=== PATIENT | female | born 1960 | race Hispanic/Latino ===

== ENCOUNTER 2021-06-19 16:19 | Emergency (ER) | payer MEDICARE ==
--- NOTE | 2021-06-19 16:27 | Event Note ---
ED Screening Note Date of service: 06/19/21 Time: 16:27 ED Screening Note: 60-year-old female brought in by EMS for left wrist injury. EMS reports obvious deformity. Patient is placed in a splint. Was reported that patient had fentanyl in the field. This initial assessment/diagnostic orders/clinical plan/treatment(s) is/are subject to change based on patients health status, clinical progression and re- assessment by fellow clinical providers in the ED. Further treatment and workup at subsequent clinical providers discretion. Patient/guardian urged not to elope from the ED as their condition may be serious if not clinically assessed and managed. Initial orders include: X-ray left wrist 2 view ordered
--- NOTE | 2021-06-19 17:08 | XRay Report ---
Left wrist radiograph, 2 views HISTORY: Injury COMPARISON: None FINDINGS: There is an acute comminuted and impacted fracture of the distal left humerus. Intra-articu lar involvement with 7 mm of intra-articular gap due to displacement of the ulnar aspect of the dista l radius. Acute oblique fracture of the distal left ulnar shaft width apex ulnar angulation and dorsa l displacement distal fracture fragment. Mildly displaced avulsion fracture of the ulnar styloid. The DRUJ is likely disrupted. Carpal alignment is preserved. No additional fracture is identified. There is prominent soft tissue swelling of the wrist with gas along the ulnar aspect of the wrist, suggest ing open fracture. IMPRESSION: Acute distal left radial and ulnar fractures, as above. Signer Name: Kobi Ansari MD Signed: 06/19/2021 5:04 PM Workstation Name: [id number]
[2021-06-19] MEDS ORDERED: oxyCODONE /ACETAMINOPHEN 5-325MG TAB PO ONE ×2 (17:11→20:22)
--- NOTE | 2021-06-19 17:27 | Emergency Department Report ---
Upper Extremity <MENDY MAC - Last Filed: 06/19/21 19:31> - HPI Upper Extremity: Right Wrist Occurred When: Today Mechanism: Fall Severity: severe Symptoms: Yes Pain with Movement, Yes Deformity, Yes Limited Range of Movement, Yes Swelling, No Numbness, No Weakness, No Bruising/Ecchymosis, No Laceration or Abrasion Other History: 60 year old female was brought to ED by EMS with complaints of left wrist injury. 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 She states there was a water bug on her ceiling and she was using a broom to try to get it off. She states that the bug started falling towards her and then she paniced, and struck her left wrist on "something" and then fell onto her wrist. She denies any head injury. She reports severe pain and swelling to left wrist. She is unable to move wrist. She denies any hx of surgery to wrist in plst. She denies any numbness or tingling. She is right hand dominant. Pt was given 200mcg of Fentanyl by EMS but she still reports severe pain. <IRAIDA DELEON - Last Filed: 06/19/21 21:02> - HPI Chief Complaint: Extremity Injury, Upper Stated Complaint: LT WRIST INJURY Time Seen by Provider: 06/19/21 17:10 ED Review of Systems ROS: Stated complaint: LT WRIST INJURY Other details as noted in HPI <MENDY MAC - Last Filed: 06/19/21 19:31> ROS: Stated complaint: LT WRIST INJURY Other details as noted in HPI Comment: All other systems reviewed and negative Constitutional: denies: chills, fever Eyes: denies: eye pain, eye discharge, vision change ENT: denies: ear pain, throat pain, dental pain, hearing loss, epistaxis, congestion Cardiovascular: denies: chest pain, palpitations Genitourinary: denies: urgency, dysuria, frequency, hematuria, discharge, abnormal menses, dyspareunia Musculoskeletal: joint swelling, arthralgia. denies: back pain Skin: denies: rash, lesions, change in color, change in hair/nails, pruritus Neurological: denies: headache, weakness, numbness, paresthesias, confusion, abnormal gait, vertigo Psychiatric: denies: anxiety, depression, auditory hallucinations, visual hallucinations, homicidal thoughts, suicidal thoughts Hematological/Lymphatic: denies: easy bleeding, easy bruising <IRAIDA DELEON - Last Filed: 06/19/21 21:02> ED Past Medical Hx <MENDY MAC - Last Filed: 06/19/21 19:31> - Past Medical History Additional medical history: HYPOTYHROID - Surgical History Past Surgical History?: No <IRAIDA DELEON - Last Filed: 06/19/21 21:02> - Medications Home Medications: Home Medications Medication Instructions Recorded Confirmed Last Taken Type Ibuprofen [Motrin] 600 mg PO Q8H PRN #30 tablet 06/19/21 Unknown Rx Oxycodone HCl/Acetaminophen 1 each PO Q4HR PRN #12 tablet 06/19/21 Unknown Rx [Percocet 10/325 mg] Upper Extremity Exam - Exam General: Vital signs noted. No distress. Alert and acting appropriately. <MENDY MAC - Last Filed: 06/19/21 19:31> - Exam General: Vital signs noted. No distress. Alert and acting appropriately. Head and Torso: No HEENT Abnormality, No Neck Tenderness, No Chest/Lungs Abnormality, No Abdominal Tenderness, No Back Tenderness Shoulder Exam: Yes Normal Range of Motion in Shoulder, No Shoulder Tenderness, No Clavicle Tenderness, No Shoulder Deformity, No AC Joint Tenderness Arm Exam: No Arm/Humerus Tenderness, No Arm Deformity Elbow: Yes Normal Range of Motion in Elbow, No Elbow Tenderness, No Elbow Deformity Wrist: Yes Wrist Tenderness (severe left wrist ttp ), Yes Wrist Deformity (dinner fork deformity noted with moderate swelling and mild ecchymosis ), No Normal ROM in Wrist Hand: Yes Normal ROM in Digit(s), No Hand Tenderness, No Hand Deformity, No Digit Tenderness, No Digit(s) Deformity, No Tendon Dysfunction CMS Exam: Yes Normal Distal Pulses, Yes Normal Capillary Refill, Yes Normal Distal Sensation, No Broken Skin <IRAIDA DELEON - Last Filed: 06/19/21 21:02> ED Course Vital Signs 06/19/21 06/19/21 06/19/21 16:55 18:05 18:16 Temperature 97.6 F Pulse Rate 73 67 Respiratory 20 18 19 Rate Blood Pressure 110/66 O2 Sat by Pulse 96 97 100 Oximetry <MENDY MAC - Last Filed: 06/19/21 19:31> Vital Signs 06/19/21 16:55 Temperature 97.6 F Pulse Rate 73 Respiratory 20 Rate Blood Pressure 110/66 O2 Sat by Pulse 96 Oximetry <IRAIDA DELEON - Last Filed: 06/19/21 21:02> - Moderate Sedation Indications: fracture/dislocation redu ASA Class: II Mallampati Airway Score: 3 Preparation: cardiac technologist applied, pulse oximeter, capnometry used, supplemental O2 applied, suction/airway equipment at bedside, IV secured IV Propofol Dose (mgs): 220 Complications: none Patient Tolerated Procedure: well, no complications - Orthopedic Fracture Reduction Fracture #1 Consent Obtained: written consent Time Out Performed: Yes Side: right Analgesia: moderate sedation Technique: direct manipulation, finger traps Post Reduction X-rays Demonstrate: acceptable reduction Post-Reduction Neuro Exam: intact Post-Reduction Vascular Exam: intact Splint Applied: Yes Patient Tolerated Procedure: well <MENDY MAC - Last Filed: 06/19/21 19:31> ED Medical Decision Making - Radiology Data Radiology results: report reviewed Right wrist 3 views INDICATION: Right wrist pain following injury IMPRESSION: Comminuted intra-articular fracture of the distal radius. There is a obliquely oriented fracture through the distal metaphysis of the adjacent ulna and a displaced ulnar solid process fracture. Overlying cast has been placed. - Medical Decision Making I performed moderate sedation and achieved adequate alignment post reduction. Patient medicated with Dilaudid post reduction. Immobilized with sugar tong wrist/forearm splint. Splint inspected by me and deemed to be acceptable. Patient will be discharged with pain medication and outpatient orthopedic follow up <MENDY MAC - Last Filed: 06/19/21 19:31> - Medical Decision Making 2045: Post reduction eval -- Patient awake alert and oriented x3. Has been talkative in room. Discussed splint care with patient, and plans for discharge with instructions to follow [facility] b[facility] or Dr Hui. Pt given copy of xray on CD. Pt expressed understanding and agreed with plan. Pt was stable at time of d/c. <IRAIDA DELEON - Last Filed: 06/19/21 21:02> Critical Care Time: No Critical care attestation.: If time is entered above; I have spent that time in minutes in the direct care of this critically ill patient, excluding procedure time. <MENDY MAC - Last Filed: 06/19/21 19:31> Critical care attestation.: If time is entered above; I have spent that time in minutes in the direct care of this critically ill patient, excluding procedure time. <IRAIDA DELEON - Last Filed: 06/19/21 21:02> ED Disposition <MENDY MAC - Last Filed: 06/19/21 19:31> Is pt being admited?: No Does the pt Need Aspirin: No Time of Disposition: 20:45 <IRAIDA DELEON - Last Filed: 06/19/21 21:02> Clinical Impression: Wrist fracture, closed Disposition: 01 HOME / SELF CARE / HOMELESS Condition: Stable Instructions: Cast or Splint Care, Adult, [id number], Closed Reduction for Wrist or Forearm, Care After, Colles Fracture Additional Instructions: DO not wet splint or remove it. I recommend keeping your arm in sling as much as possible to keep it elevated. Take the percocet and the motrin as prescribed. You can follow up with your baker apprentice at [facility] or the one listed o your discharge instructions. Return to ED if worse. Prescriptions: Ibuprofen [Motrin] 600 mg PO Q8H PRN #30 tablet PRN Reason: Pain Oxycodone HCl/Acetaminophen [Percocet 10/325 mg] 1 each PO Q4HR PRN #12 tablet PRN Reason: Pain Referrals: [facility] [Provider Group] - 3-5 Days CHAD HUI MD [Staff Physician] - 3-5 Days Forms: Work/School Release Form(ED)
[2021-06-19] MEDS ORDERED: propofoL 200 MG/20 ML VIAL IV ONE ×2 (18:20→19:05)
[2021-06-19] MEDS ORDERED: fentaNYL 100 MCG/2 ML INJ IV ONE (18:32)
[2021-06-19] MEDS ORDERED: fentaNYL 100 MCG/2 ML INJ ONE (18:33)
[2021-06-19] MEDS ORDERED: HYDROmorphone 1 MG/1 ML INJ IV ONE ×3 (19:01→19:47)
[2021-06-19] MEDS ORDERED: ONDANSETRON 4 MG/2 ML INJ IV ONE (19:01)
[2021-06-19] MEDS ORDERED: ONDANSETRON 4 MG/2 ML INJ ONE (19:02)
[2021-06-19] MEDS ORDERED: HYDROmorphone 1 MG/1 ML INJ ONE (19:02)
--- NOTE | 2021-06-19 19:19 | XRay Report ---
Right wrist 3 views INDICATION: Right wrist pain following injury IMPRESSION: Comminuted intra-articular fracture of the distal radius. There is a obliquely oriented f racture through the distal metaphysis of the adjacent ulna and a displaced ulnar solid process fractu re. Overlying cast has been placed. Signer Name: Philip Hernandez MD Signed: 06/19/2021 7:15 PM Workstation Name: [id number]
[2021-06-19] MEDS ORDERED: KETOROLAC 30 MG/1 ML INJ IV ONE (19:51)
[2021-06-20 07:34] VITALS: BP 133/83
== END 2021-06-19 21:15 | disposition home or self-care (01) ==
LOC: ED 16:19
DX: S52.572A Other intraarticular fracture of lower end of left radius, initial encounter for closed fracture (principal); S52.602A Unspecified fracture of lower end of left ulna, initial encounter for closed fracture; W19.XXXA Unspecified fall, initial encounter; Y93.89 Activity, other specified; Y92.89 Other specified places as the place of occurrence of the external cause; Y99.8 Other external cause status
CPT/HCPCS: 25605; 73100; 96374; 96375; 96376; 99284; J1170; J1885; J2405; J2704; J3010